=== PATIENT | male | born 1990 | race Caucasian/White ===

== ENCOUNTER 2022-07-02 18:17 | Emergency (ER) | payer MEDICAID, SELFPAY ==
[2022-07-02 18:25] VITALS: BP 131/81; PULSE 82; RESP 18; TEMP 37; O2SAT 99; BMI 21.3
--- NOTE | 2022-07-02 18:36 | EXP.UTC ---
Discharge Plan Disposition Patient Disposition: Home, Self-Care Condition: Good Prescriptions Prescriptions: New cephalexin [cephalexin] 500 mg tablet 500 mg PO BID 7 Days Qty: 14 0RF No Action hydroxyzine HCl 50 MG tablet 1 cap PO Q6 PRN (Reason: Anxiety) Label Comments: TAKE 1 TABLET BY MOUTH EVERY 6 HOURS paroxetine HCl 40 MG tablet 40 mg PO DAILY clindamycin HCl 300 MG capsule 300 mg PO Q6 10 Days Qty: 40 0RF Referrals Follow up/Referrals: Provider,Referral, MD [Primary Care Provider] - See instructions Clinical Impressions Clinical Impression: Dental caries Instructions Patient Instructions: Tooth Abscess, DI for Sinusitis Discharge ED Provider: Skip ([facility])[place] [facility] [place] HPI General Stated complaint: facial swelling Mode of Arrival: Ambulatory Source of Information: Patient Limitations: No Limitations Time Seen by Provider: 07/02/22 18:37 Description of Symptoms (Recalled from Triage Doc. by RN): PATIENT C/O SWELLING TO LFET UPPER SIDE OF FACE X 2 DAYS HEENT Symptoms (Recalled from RN notes): No Resp Symptoms (Recalled from RN notes): No Skin Symptoms (Recalled from RN notes): No MS Symptoms (Recalled from RN notes): No Functional Status (Recalled from RN notes): N/A History of Present Illness Provider Complaint: 32 yr old male presents for swelling of left cheek. pt states he had green drainage from nose. pt states teeth hurt and has facial pain. Related Data Home Medications Medication Instructions Recorded Confirmed hydroxyzine HCl 50 mg tablet 1 cap PO Q6 PRN Anxiety 05/28/19 05/28/19 paroxetine HCl 40 mg tablet 40 mg PO DAILY Anxiety 05/28/19 05/28/19 Previous Rx's Medication Instructions Recorded clindamycin HCl 300 mg capsule 300 mg PO Q6 10 days #40 caps 05/28/19 cephalexin 500 mg tablet 500 mg PO BID 7 days #14 tabs 07/02/22 Allergies Allergy/AdvReac Type Severity Reaction Status Date / Time erythromycin base Allergy Verified 05/28/19 20:40 Penicillins Allergy Verified 05/28/19 20:40 Sulfa (Sulfonamide Allergy Verified 05/28/19 20:40 Antibiotics) Worker's Comp Is this a Worker's Comp case?: No [facility] Medical History , ALGOLOGIST) Anxiety Social History , ALGOLOGIST) Smoking Status: Current every day smoker tobacco type: cigarettes packs per day: 1 alcohol intake: never current occupational status: other Travel in the last 8 weeks: None ROS Obtained: Yes All systems reviewed & no additional complaints except as documented Constitutional Constitutional: Reports system reviewed and no additional complaints, except as documented Eyes Eyes: Reports system reviewed and no additional complaints, except as documented ENT Ears, Nose, Mouth, and Throat: Reports system reviewed and no additional complaints, except as documented, Reports as per HPI and Reports dental pain Cardiovascular Cardiovascular: Reports system reviewed and no additional complaints, except as documented Respiratory Respiratory: Reports system reviewed and no additional complaints, except as documented Musculoskeletal Musculoskeletal: Reports system reviewed and no additional complaints, except as documented Integumentary/Breasts Skin/Breast: Reports system reviewed and no additional complaints, except as documented Neurologic Neurologic: Reports system reviewed and no additional complaints, except as documented Endocrine Endocrine: Reports system reviewed and no additional complaints, except as documented Hematologic/Lymphatic Henatologic/Lymphatic: Reports system reviewed and no additional complaints, except as documented Allergic/Immunologic Allergic/Immunologic: Reports system reviewed and no additional complaints, except as documented Physical Exam General General appearance: alert and in no apparent distress Head Head exam: atraumatic and normocephal
[2022-07-02 18:50] VITALS: BP 131/89; PULSE 86; RESP 19; TEMP 36.7; O2SAT 100
== END 2022-07-02 18:58 | disposition home or self-care (01) ==
PROVIDERS: Emergency Provider Nurse Practitioner Family
DX: K02.9 Dental caries, unspecified (principal)
CPT/HCPCS: 96372; 99212; G0463; J0696

== ENCOUNTER 2022-07-13 15:11 | Emergency (ER) | payer MEDICAID, SELFPAY ==
[2022-07-13 15:25] VITALS: BP 137/77; PULSE 101; RESP 20; TEMP 36.8; O2SAT 98; BMI 22.9
--- NOTE | 2022-07-13 15:53 | EXP.UTC ---
Discharge Plan Disposition Patient Disposition: Home, Self-Care Condition: Good Prescriptions Prescriptions: New clindamycin HCl 300 mg capsule 300 mg PO Q8H Qty: 30 0RF ibuprofen [IBU] 800 mg tablet 800 mg PO Q8HP PRN (Reason: Moderate Pain) Qty: 30 0RF No Action paroxetine HCl 40 MG tablet 40 mg PO DAILY Referrals Follow up/Referrals: Rosy Lane [Primary Care Provider] - See instructions Activity Restrictions/Add. Instructions Additional Instructions/Restrictions: Drink plenty of fluids. Take tylenol or ibuprofen for pain or fever. Take the medications as directed. Follow up with your regular doctor. GO TO THE ER FOR ANY WORSENING SYMPTOMS FOLLOW UP WITH YOUR DENTIST. THIS NOTE WILL SERVE THE REFERRAL, IF YOU NEED ONE. Clinical Impressions Clinical Impression: Abscess, dental, Jaw pain Stand Alone Forms Stand Alone Forms: Work/School Release Instructions Patient Instructions: Tooth Abscess, DI for Tooth Abscess Discharge ED Provider: Carlo Adler [facility] [place] General Stated complaint: dental pain Mode of Arrival: Ambulatory Source of Information: Patient Limitations: No Limitations Time Seen by Provider: 07/13/22 15:53 Description of Symptoms (Recalled from Triage Doc. by RN): PATIENT C/O TOOTH ABSCESS AND REQUESTING REFERAL FOR DENTIST. HE STATES HE WAS SEEN IN [facility] ON 07/02 AND WAS GIVEN ANTIBIOTICS, AND REPORTS HE STARTED SWELLING ON THRID DAY OF ANTIBIOTICS. HE STATES THE DENTIST SENT HIM HERE FOR A REFERAL AND ANTIBIOTICS. HEENT Symptoms (Recalled from RN notes): Yes Resp Symptoms (Recalled from RN notes): No Skin Symptoms (Recalled from RN notes): No MS Symptoms (Recalled from RN notes): No Functional Status (Recalled from RN notes): wnl History of Present Illness Provider Complaint: He is here to be rechecked for an abscessed tooth. He was initially saw at his dentist on 07/02 and started on amoxicillin for this. He states that once he finished the amoxicillin his dental pain and swelling began to back. He states that he was told by the dentist office to come here to be evaluated and to get a referral to the dentist and they will then seen him sooner that they can otherwise. Related Data Home Medications Medication Instructions Recorded Confirmed paroxetine HCl 40 mg tablet 40 mg PO DAILY Anxiety 05/28/19 07/13/22 Previous Rx's Medication Instructions Recorded clindamycin HCl 300 mg capsule 300 mg PO Q8H #30 caps 07/13/22 ibuprofen 800 mg tablet (IBU) 800 mg PO Q8HP PRN Moderate Pain 07/13/22 #30 tabs Allergies Allergy/AdvReac Type Severity Reaction Status Date / Time erythromycin base Allergy Verified 05/28/19 20:40 Penicillins Allergy Verified 05/28/19 20:40 Sulfa (Sulfonamide Allergy Verified 05/28/19 20:40 Antibiotics) Worker's Comp Is this a Worker's Comp case?: No PFSH PFSH Medical History Anxiety Surgical History History of tympanostomy tube placement Social History Smoking Status: Current every day smoker tobacco type: cigarettes packs per day: 1 alcohol intake: never current occupational status: other Travel in the last 8 weeks: None ROS Obtained: Yes All systems reviewed & no additional complaints except as documented Constitutional Constitutional: Denies chills and Denies fever(s) Eyes Eyes: Denies eye discharge ENT Ears, Nose, Mouth, and Throat: Reports as per HPI, Denies dizziness, Denies otalgia and Denies sore throat Cardiovascular Cardiovascular: Denies chest pain Respiratory Respiratory: Denies shortness of breath, Denies chest congestion, Denies cough, Denies stridor and Denies wheezing Gastrointestinal Gastrointestingal: Denies nausea or vomiting Musculoskeletal Musculoskeletal: Reports system reviewed and no additional complaints, exc
[2022-07-13 16:25] VITALS: BP 137/77; PULSE 101; RESP 20; TEMP 36.8; O2SAT 98
== END 2022-07-13 16:26 | disposition home or self-care (01) ==
PROVIDERS: Emergency Provider Nurse Practitioner Family; PCP Nurse Practitioner Family
DX: K04.7 Periapical abscess without sinus (principal); R68.84 Jaw pain; F41.9 Anxiety disorder, unspecified; F17.210 Nicotine dependence, cigarettes, uncomplicated; Z88.0 Allergy status to penicillin; Z88.1 Allergy status to other antibiotic agents; Z88.2 Allergy status to sulfonamides; Z88.3 Allergy status to other anti-infective agents
CPT/HCPCS: 99213; G0463

== ENCOUNTER 2022-08-15 21:53 | Emergency (ER) | payer MEDICAID, SELFPAY ==
[2022-08-15 22:10] VITALS: BP 141/91; PULSE 77; RESP 18; TEMP 36.8; O2SAT 100; BMI 21.7
--- NOTE | 2022-08-15 23:19 | PC.NURSE ---
Dr. Estrella at
--- NOTE | 2022-08-15 23:22 | [facility].EDDENT ---
Discharge Plan Disposition Patient Disposition: Home, Self-Care Prescriptions Prescriptions: New clindamycin HCl 300 mg capsule 300 mg PO TID Qty: 30 0RF No Action paroxetine HCl 40 MG tablet 40 mg PO DAILY clindamycin HCl 300 mg capsule 300 mg PO Q8H Qty: 30 0RF ibuprofen [IBU] 800 mg tablet 800 mg PO Q8HP PRN (Reason: Moderate Pain) Qty: 30 0RF Referrals Follow up/Referrals: Rosy Lane [Primary Care Provider] - See instructions Clinical Impressions Clinical Impression: Dental caries, Pain due to dental caries Instructions Patient Instructions: DI for Dental Pain Discharge ED Provider: Eric [facility] HPI General Chief complaint: Dental/Oral Stated complaint: right side tooth pain Time Seen by Provider: 08/15/22 23:25 Mode of Arrival: Ambulatory Source of Information: Patient and Medical Record Limitations: No Limitations Description of Symptoms (Recalled from ER Triage Doc. by RN): pt c/o left sided dental pain for prior month. States that he had 5 teeth removed a couple of weeks ago on the right side but his pain is on the opposite side. States that he is supposed to get the rest of his teeth pulled, however, his dentist is out sick and will not be in until Monday. States that he took an antibiotic he had leftover (clindamyin) from his tooth extraction from 2 weeks ago but it has not helped. Denies any fever or neck pain. History of Present Illness HPI Narrative: has ongoing dental pain with hx of dental infection and extractions MD Complaint: tooth pain Onset (ago): day(s) Duration: intermittent Severity: moderate Context: history of dental caries and poor dental care Treatment prior to arrival: recent dentist visit Related Data Home Medications Medication Instructions Recorded Confirmed paroxetine HCl 40 mg tablet 40 mg PO DAILY Anxiety 05/28/19 07/13/22 Previous Rx's Medication Instructions Recorded clindamycin HCl 300 mg capsule 300 mg PO Q8H #30 caps 07/13/22 ibuprofen 800 mg tablet (IBU) 800 mg PO Q8HP PRN Moderate Pain 07/13/22 #30 tabs clindamycin HCl 300 mg capsule 300 mg PO TID #30 caps 08/15/22 Allergies Allergy/AdvReac Type Severity Reaction Status Date / Time erythromycin base Allergy Verified 05/28/19 20:40 Penicillins Allergy Verified 08/27/19 20:40 Sulfa (Sulfonamide Allergy Verified 05/28/19 20:40 Antibiotics) [facility] Medical History Anxiety Surgical History History of tympanostomy tube placement Social History Smoking Status: Current every day smoker tobacco type: cigarettes packs per day: 1 alcohol intake: never current occupational status: other Travel in the last 8 weeks: None ROS Obtained: Yes All systems reviewed & no additional complaints except as documented Physical Exam General General appearance: alert Head Head exam: normocephalic Eye Eye exam: Present PERRL and EOMI Expanded ENT Exam Teeth exam: Present dental caries, gingival swelling and other (no abscess ) Neck Neck exam: Present full ROM Respiratory Respiratory exam: Absent respiratory distress Cardiovascular Cardiovascular exam: Present regular rate Extremities Exam Extremities exam: Present full ROM Neurological Exam Neurological exam: Present alert and CN II-XII intact Skin Skin exam: Absent rash Medical Decision Making Medical Records Medical records reviewed: Yes I reviewed the patient's medical records. Erwin Inquiry Pt receiving controlled substance: No Vital Signs: 08/15/22 22:10 Temperature 98.3 F Temperature Source Oral Pulse Rate [Apical] 77 Respiratory Rate 18 Blood Pressure [Right Arm] 141/91 H Blood Pressure Mean [Right Arm] 107 Blood Pressure Source [Right Arm] Automatic Cuff Blood Pressure Position [Right Arm] Sitting 02 Sat by Pulse Oximetr
[2022-08-15 23:58] VITALS: BP 140/87; PULSE 76; RESP 18; TEMP 36.6; O2SAT 99
== END 2022-08-16 00:02 | disposition home or self-care (01) ==
PROVIDERS: Emergency Provider Emergency Medicine; PCP Nurse Practitioner Family
DX: K04.7 Periapical abscess without sinus (principal); K02.9 Dental caries, unspecified; F41.9 Anxiety disorder, unspecified; F17.210 Nicotine dependence, cigarettes, uncomplicated; Z79.1 Long term (current) use of non-steroidal anti-inflammatories (NSAID); Z79.899 Other long term (current) drug therapy; Z88.0 Allergy status to penicillin; Z88.1 Allergy status to other antibiotic agents; Z88.2 Allergy status to sulfonamides; Z88.3 Allergy status to other anti-infective agents
CPT/HCPCS: 96374; 99284; J0696